=== PATIENT | male | born 1970 | race Caucasian/White ===

== ENCOUNTER 2017-10-13 06:48 | Outpatient (CLI) | payer OTHER | END 2017-10-13 06:49 | disposition short-term general hospital (02) | LOC: EMS 06:48 | PROVIDERS: ATTEND Surgery | DX: M79.662 Pain in left lower leg (principal); R07.9 Chest pain, unspecified; M54.5 Low back pain; V29.40XA Motorcycle driver injured in collision with unspecified motor vehicles in traffic accident, initial encounter; Y92.410 Unspecified street and highway as the place of occurrence of the external cause | CPT/HCPCS: A0425; A0429 ==

== ENCOUNTER 2021-04-21 20:58 | Outpatient (CLI) | payer OTHER | END 2021-04-21 20:59 | disposition short-term general hospital (02) | LOC: EMS 20:58 | DX: S00.83XA Contusion of other part of head, initial encounter (principal); R07.89 Other chest pain; R10.12 Left upper quadrant pain; S89.92XA Unspecified injury of left lower leg, initial encounter; V47.5XXA Car driver injured in collision with fixed or stationary object in traffic accident, initial encounter; Y92.410 Unspecified street and highway as the place of occurrence of the external cause | CPT/HCPCS: A0425; A0429 ==